=== PATIENT | female | born 1975 | race African-American/Black ===

== ENCOUNTER 2020-04-15 06:36 | Emergency (ER) | payer BC ==
[~2020-04-15] VITALS: Ht 177.8 cm; Wt 102.0 kg
[2020-04-15] MEDS ORDERED: ONDANSETRON 2MG/ML, 2ML ONE (06:57)
[2020-04-15] MEDS ORDERED: MORPHINE SULFATE 4 MG/ML, 1ML ONE (06:57)
[2020-04-15] MEDS ORDERED: ONDANSETRON 2MG/ML, 2ML IVPush ONE (07:00)
[2020-04-15] MEDS ORDERED: SODIUM CHLORIDE 0.9% 1,000ML IVBOLUS ONE (07:00)
[2020-04-15] MEDS ORDERED: MORPHINE SULFATE 4 MG/ML, 1ML IVPush PRN (07:00)
[2020-04-15 07:23] LABS: BASOPHILS % (AUTO) 0 % (0-1); EOSINOPHILS % (AUTO) 1 % (1-7); LYMPHOCYTES % (AUTO) 22 % (22-44); MEAN CORPUSCULAR HEMOGLOBIN 26.3 pg (27.0-34.8); MEAN CORPUSCULAR HGB CONC 32.1 g/dL (32.4-35.8); MEAN PLATELET VOLUME 8.1 fL (7.4-10.4); MONOCYTES % (AUTO) 5 % (2-9); NEUTROPHILS % (AUTO) 72 % (42-75); PLATELET COUNT 203 x10^3/uL (130-400); RED BLOOD COUNT 4.44 x10^6/uL (3.82-5.3); RED CELL DISTRIBUTION WIDTH 14.8 % (9.6-15.2)
--- NOTE | 2020-04-15 07:30 | NUR ---
PT WITH C/O RLQ PAIN BEGINNING LAST NIGHT, 2 EPISODES OF EMESIS. PT DENEIS DIARRHEA. PT AMBULATED TO BR WITH STEADY GAIT, UA COLLECTED AND SENT TO LAB, PIV INITIATED, PT MEDICATED PER JUL. PT TO BP, CONT PULSE OX
[2020-04-15 07:31] LABS: MD NO
[2020-04-15 07:32] LABS: ALANINE AMINOTRANSFERASE 12 U/L (12-78); ALBUMIN 3.6 g/dL (3.4-5.0); ANION GAP 6 mmol/L (5-15); CALCIUM 8.2 mg/dL (8.5-10.1); CHLORIDE 109 mmol/L (98-107); CREATININE 1.05 mg/dL (0.55-1.02)
[2020-04-15 07:36] LABS: ALKALINE PHOSPHATASE 70 U/L (45-117); BILIRUBIN,TOTAL 0.4 mg/dL (0.2-1.0); TOTAL PROTEIN 7.6 g/dL (6.4-8.2)
[2020-04-15 07:42] LABS: MICROSCOPIC NOT IND
[2020-04-15] MEDS ORDERED: HYDROmorphone 1 MG/ML, 1ML INJ ONE (08:43)
--- NOTE | 2020-04-15 08:50 | NUR ---
PT BACK FROM [place], STATES NO PAIN RELEIF FROM MORPHINE. ADDITIONAL ORDERS RECIEVED FOR PAIN MEDICATION, PT MEDICATED PER JUL, VSS. CT ABD ORDERED
[2020-04-15] MEDS ORDERED: HYDROmorphone 2 MG/ML, 1ML IVPush PRN (09:00)
[2020-04-15] MEDS ORDERED: OMNIPAQUE 350 MG/ML, 100ML BOTTLE ONE (09:16)
--- NOTE | 2020-04-15 10:14 | NUR ---
PT RETURNS FROM [place]. STATES PAIN NOW /10 DOWN FROM 03/11. VSS, ERP UPDATED ON PT STATUS, AWAIT ERMD TO UPDATE ON POC, POSSIBLE ADMISSION
[2020-04-15] MEDS ORDERED: OXYcodone/APAP 10/325MG TABLET ONE (11:16)
[2020-04-15 11:24] VITALS: BP 124/69
--- NOTE | 2020-04-15 11:27 | NUR ---
PT REQUESTING PAIN MEDICATION PRIOR TO DC, ERMD UPDATED ORDERS RECIEVED, OK TO MEDICATE AND PROCEED WITH DC, PT IN CARE OF ON DISCHARGE
[2020-04-15] MEDS ORDERED: OXYcodone/APAP 10/325MG TABLET PO ONE (11:30)
== END 2020-04-15 12:16 | disposition home or self-care (01) ==
LOC: ED 07:01
DX: N83.292 Other ovarian cyst, left side (principal); N83.291 Other ovarian cyst, right side; N28.0 Ischemia and infarction of kidney; R10.31 Right lower quadrant pain; J98.11 Atelectasis; I51.7 Cardiomegaly; Z90.49 Acquired absence of other specified parts of digestive tract
CPT/HCPCS: 36415; 71045; 74177; 76830; 80053; 81003; 83690; 84703; 85025; 96361; 96374; 96375; 99285; J1170; J2270; J2405; J7030; Q9967